=== PATIENT | male | born 1940 | race Caucasian/White ===

== ENCOUNTER 2018-11-04 21:30 | Emergency (ER) | payer MEDICARE, OTHER ==
[2018-11-04 21:53] VITALS: TEMP 97.2
[2018-11-04] MEDS ORDERED: PRINIVIL10 MG PO (22:06)
[2018-11-04] MEDS ORDERED: PRILOSEC 20MG20 MG PO (22:06)
[2018-11-04 22:26] LABS: EOS # 0.1 (0.0-0.7); EOS % 2.8 % (0-4.0); GRAN # 1.9 (1.4-6.5); GRAN % 44.9 % (42.2-75.2); HEMATOCRIT 40.1 % (42.0-52.0); HEMOGLOBIN 14.6 g/dl (13.5-18.0); LYMPH # 1.7 (1.2-3.4); LYMPH % 39.1 % (20.0-51.0); MEAN CELL VOLUME 94 fl (80.0-100.0); MEAN CORPUSCULAR HEMOGLOBIN 34 pg (27.0-31.0); MEAN CORPUSCULAR HGB CONC 36 g/dl (33.0-37.0); MEAN PLATELET VOLUME 8.8 fl (7.4-10.4); MONO # 0.6 (0.1-0.6); PLATELET COUNT 160 K/mm3 (130-400); RED BLOOD COUNT 4.28 M/mm3 (4.20-5.60)
[2018-11-04 22:51] LABS: INR 1.1 (0.8-3.0); PROTHROMBIN TIME 12.7 SECONDS (9.7-12.8)
[2018-11-04 22:54] LABS: ALANINE AMINOTRANSFERASE 44 U/L (21-72); ALKALINE PHOSPHATASE 109 U/L (50-136); ANION GAP 13 mmol/L (7-16); AST,SGOT 49 U/L (15-37); BILIRUBIN,TOTAL 0.9 mg/dL (0.0-1.0); BLOOD UREA NITROGEN 10 mg/dL (9-20); CALCIUM 9.1 mg/dL (8.4-10.2); CARBON DIOXIDE 21 mmol/L (22-30); CHLORIDE 94 mmol/L (98-107); CREATINE KINASE 124 U/L (55-170); GLUCOSE 139 mg/dL (74-106); PARTIAL THROMBOPLASTIN TIME 30.5 SECONDS (26.0-37.0); POTASSIUM 3.8 mmol/L (3.4-5.0); SODIUM 127 mmol/L (137-145); TOTAL PROTEIN 7.3 gm/dL (6.4-8.2)
[2018-11-04 23:05] LABS: TROPONIN-I < 0.012 ng/mL (0.000-0.035)
[2018-11-05 03:00] VITALS: BP 141/72; PULSE 66
== END 2018-11-05 03:00 | disposition home or self-care (01) ==
LOC: COL.ER 21:30
PROVIDERS: Emergency Medicine
DX: I10 Essential (primary) hypertension (principal); Z87.891 Personal history of nicotine dependence; Z98.890 Other specified postprocedural states
CPT/HCPCS: J2060; J2405; J2765; J7040